=== PATIENT | female | born 1945 | race American Indian/Alaskan Native ===

== ENCOUNTER 2017-09-21 16:34 | Inpatient (IN) | payer OTHER ==
[2017-09-14 18:20] VITALS: BMI 36.6
[2017-09-21] MEDS ORDERED: Magnesium Hydroxide Susp 30 ml UD PO PRN (19:13)
--- NOTE | 2017-09-21 19:27 | CP.PCM.HP ---
History of Present Illness - History of Present Illness History of Present Illness: CC: STOMACH SURGERY HPI: this is a 72-year-old female with past medical history for nonischemic dilated cardiomyopathy, CHF, hypertension, history of arthritis, history of small bowel obstructions, status post exploratory laparoscopy 09/18/17 for SBO at [facility] Dr. Latham. patient has not yet had a BM, and is in TCU for further rehabilitation needs. The patient is currently comfortable, vital signs stable and in no acute distress. Review of systems per HPI all other systems reviewed and negative by mean Past medical and surgical history: Nonischemic dilated cardiomyopathy, CHF, hypertension, history of arthritis, history of small bowel obstructions, status post exploratory laparoscopic B 1023/, status post negative cardiac catheterization and status post negative stress test, history of multiple abdominal surgeries including 2 ectopic pregnancies, hysterectomy. Family history denies Social history denies Medications as below Allergies include Vasotec and hydrochlorothiazide vitals 98.2 heart rate 67 blood pressure 122/85 respiratory rate 20 99% with nasal cannula Physical exam: Constitutional- cooperative, awake, alert. Head- NCAT, PERRL Eye- PERRL, normal accommodation ENT- normal exam, MMM. Neck- normal inspection, supple, no JVD Respiratory- CTAB, no wheezes rales rhonchi Cardiovascular- RRR, +S1, +S2 no MRG GI/Abdominal- normal bowel sounds, soft, no tenderness around incision site, midline incision clean dry and intact a couple neela have been removed Skin- warm, dry Extremities Exam- normal capillary refill, normal inspection Neurological Exam- alert, stable gait Psych- normal mood, normal affect labs reviewed Allergies enalaprilat [From Vasotec] Allergy (Verified 09/21/17 18:51) RASH hydrochlorothiazide Allergy (Verified 09/21/17 18:51) RASH Height & Weight Height 5 ft 5 in Weight 2176 lb 8 oz Start Date/Time Active Medications 09/21/17 19:13 Acetaminophen [Tylenol 325mg tab] 650 mg PO Q4 PRN Docusate [Colace] 100 mg PO BID PRN Magnesium Hydroxide [Milk Of Magnesia] 30 ml PO HS PRN 09/21/17 19:14 oxyCODONE/Acetaminophen [Percocet 5/325 mg Tab] 1 tab PO Q6H PRN 09/21/17 22:00 Bisacodyl [Dulcolax] 5 mg PO HS 09/22/17 09:00 Esomeprazole Magnesium [Nexium] 40 mg PO DAILY Furosemide [Lasix] 40 mg PO DAILY Losartan [Cozaar] 100 mg PO DAILY Metoprolol Succinate [Toprol XL] 100 mg PO DAILY 72-year-old female with past medical history for nonischemic dilated cardiomyopathy, CHF, hypertension, history of arthritis, history of small bowel obstructions, status post exploratory laparoscopy 09/18/17 for SBO at [facility] Dr. Latham. patient has not yet had a BM, and is in TCU for further rehabilitation needs. The patient is currently comfortable, vital signs stable and in no acute distress. Status post exploratory laparoscopy secondary to SBO To facilitate bowel movement patient has been placed on Colace, milk of magnesia , and Dulcolax Encourage ambulation Percocet 1 tab every 6 when necessary for pain PT and OT Surgery Consulted, Dr. Latham Hypertension Continue Toprol, Cozaar, Lasix GERD Continue Nexium VTE prophylaxis patient is ambulatory Present on Admission - Present on Admission Any Indicators Present on Admission: No Past Patient History - Infectious Disease Hx of Infectious Diseases: None - Past Medical History & Family History Past Medical History?: Yes - Past Social History Smoking Status: Never Smoked - CARDIAC Hx Congestive Heart Failure: Yes Hx Hypertension: Yes - PULMONARY Hx Respiratory Disorders: No - NEUROLOGICAL Hx Neurological Disorder: No - HEENT Hx HEENT Problems: No - RENAL Hx Chronic Kidney Disease: No - ENDOCRINE/METABOLIC Hx Endocrine Disorders: Yes Other/Comment: Borderline diabetes - HEMATOLOGICAL/ONCOLOGICAL Hx Blood Disorders: No - INTEGUMENTARY Hx Dermatological Problems: No - MUSCULOSKELETAL/RHEUMATOLOGICAL Hx Musculoskeletal Disorders: Yes Hx Arthritis: Yes (HANDS; RIGHT ARM) Hx Falls: No Hx Fractures: No Hx Osteoporosis: No Hx Rheumatoid Arthritis: No - GASTROINTESTINAL Hx Gastrointestinal Disorders: Yes Hx Crohn's Disease: No Hx Diverticulitis: Yes Hx Gall Bladder Disease: No Hx Gastritis: No Hx Pancreatitis: Yes - GENITOURINARY/GYNECOLOGICAL Hx Genitourinary Disorders: No - PSYCHIATRIC Hx Psychophysiologic Disorder: No Hx Substance Use: No - SURGICAL HISTORY Hx Surgeries: No - ANESTHESIA Hx Anesthesia: Yes Hx Anesthesia Reactions: No Hx Malignant Hyperthermia: No Meds Allergies/Adverse Reactions: Allergies Allergy/AdvReac Type Severity Reaction Status Date / Time enalaprilat [From Vasotec] Allergy RASH Verified 09/21/17 18:51 hydrochlorothiazide Allergy RASH Verified 09/21/17 18:51
[2017-09-21 20:02] VITALS: RESP 20
[2017-09-21] MEDS: Bisacodyl 5mg EC Tab PO SCH (21:40)
[2017-09-22 07:15] LABS: HEMATOCRIT 36.3 % (34.0-47.0); MEAN CELL VOLUME 90.2 fl (81.0-99.0); MEAN CORPUSCULAR HEMOGLOBIN 29.4 pg (27.0-31.0); MEAN CORPUSCULAR HGB CONC 32.5 g/dL (33.0-37.0); RED CELL DISTRIBUTION WIDTH 14.2 % (11.5-14.5); WHITE BLOOD COUNT 6.5 K/uL (4.8-10.8)
[2017-09-22 07:49] LABS: CALCIUM 8.8 mg/dL (8.4-10.2); POTASSIUM 3.5 MMOL/L (3.6-5.0)
[2017-09-22] MEDS: Metoprolol Succinate 100 mg XL Tab PO SCH (08:27)
[2017-09-22] MEDS: Pantoprazole 40 mg EC Tab PO SCH (08:27)
[2017-09-22] MEDS ORDERED: Chlorhexidine Gluconate 1 APPL/PKT TP ONE (22:25)
[2017-09-22] MEDS: Bisacodyl 5mg EC Tab PO SCH (23:58)
[2017-09-23] MEDS: Oxycodone/Acetaminophen 5/325 mg Tab PO PRN ×2 (01:20→08:24)
[2017-09-23] MEDS: Hydrocortisone 2.5% (Rectal) CREAM PR PRN (06:47)
[2017-09-23] MEDS ORDERED: Anusol Suppository PR ONE (08:03)
[2017-09-23] MEDS ORDERED: Chlorhexidine Gluconate 1 APPL/PKT TP ONE (08:21)
[2017-09-23] MEDS: Metoprolol Succinate 100 mg XL Tab PO SCH (08:24)
[2017-09-23] MEDS: Pantoprazole 40 mg EC Tab PO SCH (08:25)
[2017-09-23] MEDS ORDERED: Anusol Suppository PR PRN (10:37)
[2017-09-23] MEDS: Bisacodyl 5mg EC Tab PO SCH (21:00)
[2017-09-24] MEDS: Pantoprazole 40 mg EC Tab PO SCH (08:31)
[2017-09-24] MEDS: Metoprolol Succinate 100 mg XL Tab PO SCH (08:34)
[2017-09-24] MEDS: Bisacodyl 5mg EC Tab PO SCH (21:09)
[2017-09-25] MEDS: Pantoprazole 40 mg EC Tab PO SCH (08:16)
[2017-09-25] MEDS: Metoprolol Succinate 100 mg XL Tab PO SCH (08:16)
[2017-09-25] MEDS: Hydrocortisone 2.5% (Rectal) CREAM PR PRN (21:27)
[2017-09-25] MEDS: Bisacodyl 5mg EC Tab PO SCH (21:27)
[2017-09-26] MEDS: Pantoprazole 40 mg EC Tab PO SCH (08:20)
[2017-09-26] MEDS: Metoprolol Succinate 100 mg XL Tab PO SCH (08:20)
--- NOTE | 2017-09-26 12:21 | CP.PCM.PN ---
Subjective - Date & Time of Evaluation Date of Evaluation: 09/26/17 Time of Evaluation: 10:00 - Subjective Subjective: Patient was seen and examined at bedside. She states that she is having good bowel movements daily now which has relieved a lot of her pain. She states that she has not been sleeping well last night but is otherwise comfortable. She has no complaints this morning. She is working with physical therapy and is cooperative. Vital signs are stable and she is in no acute distress. Objective - Vital Signs/Intake and Output Vital Signs (last 24 hours): Temp Pulse Resp BP Pulse Ox 97.3 F L 60 20 112/72 96 09/26/17 08:15 09/26/17 08:20 09/26/17 08:15 09/26/17 08:20 09/26/17 08:15 - Medications Medications: Current Medications Acetaminophen (Tylenol 325mg Tab) 650 mg PO Q4 PRN PRN Reason: Fever of 100.6 F and Above Last Admin: 09/22/17 06:45 Dose: 650 mg Acetaminophen (Tylenol 325mg Tab) 650 mg PO Q4 PRN PRN Reason: for pain level 1-3 Last Admin: 09/22/17 15:41 Dose: 650 mg Bisacodyl (Dulcolax) 5 mg PO HS [facility] Last Admin: 09/25/17 21:27 Dose: 5 mg Docusate Sodium (Colace) 100 mg PO BID [facility] Last Admin: 09/26/17 08:18 Dose: 100 mg Furosemide (Lasix) 40 mg PO DAILY [facility] Last Admin: 09/26/17 08:19 Dose: 40 mg Hydrocortisone (Anusol-Hc) 1 applic CO Q1H PRN PRN Reason: Hemorrhoids Last Admin: 09/25/17 21:27 Dose: 1 applic Losartan Potassium (Cozaar) 100 mg PO DAILY [facility] Last Admin: 09/26/17 08:19 Dose: 100 mg Magnesium Hydroxide (Milk Of Magnesia) 30 ml PO HS PRN PRN Reason: If No Bowel Movement in 3 Days Metoprolol Succinate (Toprol Xl) 100 mg PO DAILY [facility] Last Admin: 09/26/17 08:20 Dose: 100 mg Pantoprazole Sodium (Protonix Ec Tab) 40 mg PO DAILY [facility] Last Admin: 09/26/17 08:20 Dose: 40 mg Tramadol HCl (Ultram) 50 mg PO Q4 PRN PRN Reason: Pain, moderate (4-7) Last Admin: 09/26/17 04:21 Dose: 50 mg - Labs Labs: 09/22/17 06:05 09/22/17 06:05 - Additional Findings Additional findings: Physical exam: Constitutional- cooperative, awake, alert. Head- NCAT, PERRL Eye- PERRL, normal accommodation ENT- normal exam, MMM. Neck- normal inspection, supple, no JVD Respiratory- CTAB, no wheezes rales rhonchi Cardiovascular- RRR, +S1, +S2 no MRG GI/Abdominal- normal bowel sounds, soft, incision site looks clean/dry/intact. no tenderness around incision site. Skin- warm, dry Extremities Exam- normal capillary refill, normal inspection Neurological Exam- alert, stable gait Psych- normal mood, normal affect Assessment and Plan - Assessment and Plan (Free Text) Plan: 72-year-old female with past medical history for nonischemic dilated cardiomyopathy, CHF, hypertension, history of arthritis, history of small bowel obstructions, status post exploratory laparoscopy 09/18/17 for SBO at [facility] Dr. Latham. In TCU for further rehabilitation needs. The patient is currently comfortable, vital signs stable and in no acute distress. Status post exploratory laparoscopy on 09/18/2017 secondary to SBO Encourage ambulation Percocet 1 tab every 6 when necessary for pain PT and OT- patient cooperating, doing wel Surgery Consulted, Dr. Latham Patient having good bowel movements Estimated day of discharge is 09/29/2017 Hypertension Continue Toprol, Cozaar, Lasix GERD Continue Nexium VTE prophylaxis patient is ambulatory
[2017-09-26] MEDS: Bisacodyl 5mg EC Tab PO SCH (21:13)
[2017-09-27] MEDS: Hydrocortisone 2.5% (Rectal) CREAM PR PRN ×2 (00:07→17:49)
[2017-09-27] MEDS: Pantoprazole 40 mg EC Tab PO SCH (08:36)
[2017-09-27] MEDS: Metoprolol Succinate 100 mg XL Tab PO SCH (16:38)
[2017-09-27] MEDS: Bisacodyl 5mg EC Tab PO SCH (21:16)
[2017-09-28] MEDS ORDERED: guaiFENesin 200 mg/10 ml Syrup UD PO STA (01:41)
[2017-09-28 07:47] VITALS: TEMP 98.1; O2SAT 97
[2017-09-28] MEDS: Metoprolol Succinate 100 mg XL Tab PO SCH (08:51)
[2017-09-28] MEDS: Pantoprazole 40 mg EC Tab PO SCH (08:52)
[2017-09-28 08:53] VITALS: BP 121/64; PULSE 73
--- NOTE | 2017-09-28 13:21 | CP.PCM.DIS ---
Provider - Provider Date of Admission: 09/21/17 18:57 Attending physician: Gladis Fiore DO Consults: Dr. Latham, surgery Time Spent in preparation of Discharge (in minutes): 25 Hospital Course - Lab Results Lab Results: Most Recent Lab Values WBC 6.5 K/uL (4.8-10.8) 09/22/17 06:05 RBC 4.02 Mil/uL (3.80-5.20) 09/22/17 06:05 Hgb 11.8 g/dL (12.0-16.0) L 09/22/17 06:05 Hct 36.3 % (34.0-47.0) 09/22/17 06:05 MCV 90.2 fl (81.0-99.0) 09/22/17 06:05 MCH 29.4 pg (27.0-31.0) 09/22/17 06:05 MCHC 32.5 g/dL (33.0-37.0) L 09/22/17 06:05 RDW 14.2 % (11.5-14.5) 09/22/17 06:05 Plt Count 236 K/uL (130-400) 09/22/17 06:05 Sodium 144 mmol/l (132-148) 09/22/17 06:05 Potassium 3.5 MMOL/L (3.6-5.0) L 09/22/17 06:05 Chloride 105 mmol/L (98-107) 09/22/17 06:05 Carbon Dioxide 29 mmol/L (22-30) 09/22/17 06:05 Anion Gap 14 (10-20) 09/22/17 06:05 BUN 17 mg/dl (7-17) 09/22/17 06:05 Creatinine 1.1 mg/dL (0.7-1.2) 09/22/17 06:05 Est GFR ( Amer) 59 09/22/17 06:05 Est GFR (Non-Af Amer) 49 09/22/17 06:05 POC Glucose (mg/dL) 98 mg/dL (65-110) 09/28/17 05:41 Random Glucose 91 mg/dL (65-105) 09/22/17 06:05 Calcium 8.8 mg/dL (8.4-10.2) 09/22/17 06:05 - Hospital Course Hospital Course: this is a 72-year-old female with a past medical history significant for nonischemic dilated cardiomyopathy, hypertension, arthritis, history of small bowel junctions, who is status post exploratory laparoscopy on 09/18/2017 after small bowel obstruction. The surgery was performed at [facility].after the surgery, the patient did not have a bowel movement, so she was transferred to TCU for further rehabilitation. During her stay in the TCU, the patient did start having daily bowel movements and much improvement in her pain. She is able to tolerate a solid diet. She cooperated with physical therapy and occupational therapy. She states that she feels much better today and is ready for discharge home. Status post exploratory laparoscopy on 09/18/2017 secondary to SBO, admitted for rehabilitation postoperatively. Encourage ambulation as outpatient Percocet 1 tab every 6 when necessary for pain Did well with PT and OT Continue stool softeners and Milk of Magnesia as outpatient Hemorrhoids Continue Anusol suppository as outpatient Hypertension Continue Toprol, Cozaar, Lasix GERD Continue Nexium Discharge Exam - Additional Findings Additional findings: Physical exam: Constitutional- cooperative, awake, alert. Head- NCAT, PERRL Eye- PERRL, normal accommodation ENT- normal exam, MMM. Neck- normal inspection, supple, no JVD Respiratory- CTAB, no wheezes rales rhonchi Cardiovascular- RRR, +S1, +S2 no MRG GI/Abdominal- normal bowel sounds, soft, no mass, no hsm Skin- warm, dry Extremities Exam- normal capillary refill, normal inspection Neurological Exam- alert, stable gait Psych- normal mood, normal affect Discharge Plan - Discharge Medications Prescriptions: Bisacodyl [Dulcolax] 5 mg PO HS #15 tablet. Docusate [Colace] 100 mg PO BID #60 cap Furosemide 40 mg PO DAILY #30 tablet Hard Fat/Phenylephrine [place] [Anusol Suppository] 1 sup [place] DAILY PRN #30 sup PRN Reason: Hemorrhoids Magnesium Hydroxide [Milk Of Magnesia] 30 ml PO HS PRN #1 bottle PRN Reason: If No Bowel Movement in 3 Days traMADol [Ultram] 50 mg PO Q4 PRN #20 tab PRN Reason: Pain, Moderate (4-7) - Follow Up Plan Condition: GOOD Disposition: HOME/ ROUTINE Instructions: Heart Failure (DC), Exploratory Laparotomy (DC), Hypertension (DC ), Bowel Obstruction (DC)
== END 2017-09-28 11:30 | disposition home or self-care (01) | DRG 949 ==
LOC: H.TCU 18:57
PROVIDERS: ADMIT Student in an Organized Health Care Education/Training Program; ATTEND Student in an Organized Health Care Education/Training Program
PROC: F08Z1FZ Dressing Techniques Treatment using Assistive, Adaptive, Supportive or Protective Equipment (ICD-10-PCS; principal; 2017-09-21)
PROC: F08Z4FZ Home Management Treatment using Assistive, Adaptive, Supportive or Protective Equipment (ICD-10-PCS; 2017-09-21)
PROC: F07Z9ZZ Gait Training/Functional Ambulation Treatment (ICD-10-PCS; 2017-09-21)
PROC: F07L6ZZ Therapeutic Exercise Treatment of Musculoskeletal System - Lower Back / Lower Extremity (ICD-10-PCS; 2017-09-21)
DX: Z48.815 Encounter for surgical aftercare following surgery on the digestive system (principal); I42.0 Dilated cardiomyopathy; I11.0 Hypertensive heart disease with heart failure; I50.9 Heart failure, unspecified; K21.9 Gastro-esophageal reflux disease without esophagitis; M19.90 Unspecified osteoarthritis, unspecified site; K64.9 Unspecified hemorrhoids